=== PATIENT | male | born 1935 | race Caucasian/White ===

== ENCOUNTER 2016-07-26 13:38 | Inpatient (IN) ==
[2016-07-26] MEDS ORDERED: HYDROmorphone 2 MG/1 ML VIAL IV STA ×2 (13:53→15:06)
[2016-07-26] MEDS ORDERED: ONDANSETRON 4 MG/2 ML VIAL IV STA ×2 (13:53→15:06)
[2016-07-26] MEDS ORDERED: DIPH/TET/ACEL PERT BOOSTER VACCINE 0.5 ML VIAL IM ONE ×2 (13:54→13:58)
[2016-07-26] MEDS ORDERED: ONDANSETRON 4 MG/2 ML VIAL ONE ×2 (13:58→14:58)
[2016-07-26] MEDS ORDERED: HYDROmorphone 2 MG/1 ML VIAL ONE ×2 (13:58→14:58)
[2016-07-26 14:07] LABS: Basophils % 0.2 % (0.0-0.8); Eosinophils # 0.1 10*3/uL (0.0-0.87); Eosinophils % 0.8 % (0.00-10.9); Hemoglobin 11.9 GM/DL (14.0-18.0); Immature Granulocytes % 0.4 %; Immature Granulocytes Absolute 0.03 #; Lymphocytes # 1.5 10*3/uL (1.4-4.0); Lymphocytes % 16.9 % (21.2-54.2); Mean Corpuscular HGB Conc 32.2 GM/DL (32-36); Mean Corpuscular Hemoglobin 30 PG (27-34); Mean Corpuscular Volume 93.2 FL (87-102); Mean Platelet Volume 9.2 FL (9.6-12.0); Monocytes # 0.7 10*3/uL (0.11-0.8); Monocytes % 8.1 % (1.7-12.7); Neutrophils # 6.3 10*3/uL (1.4-7.4); Neutrophils % 73.6 % (38.7-73.9); Platelet Count 222 T/CUMM (130-400); Red Blood Count 3.97 MC/CUMM (3.8-5.5); Red Cell Distribution Width 16.7 % (9.3-17.3); White Blood Count 8.6 T/CUMM (4-12)
--- NOTE | 2016-07-26 14:13 | EKG Report ---
Stationary ECG Study [facility] ER Test Date: 07/26/2016 2:12:13 PM Pat Name: KI PERAZA Department: Room: Gender: M [employer]pper Machine: : [id number] Requested by: Noe Vidal Order Number: [id number] Reading MD: KALEN BURNS Intervals [place] Rate: 83 P: 58 MD: 140 QRS: 43 QRSD: 90 T: 29 QT: 383 QTc: 423 Interpretive Statements SINUS RHYTHM Electronically Signed On 07-28-16 17:00:38 CDT by KALEN BURNS [email or web address]
--- NOTE | 2016-07-26 14:31 | CT Report ---
CT head/brain wo con Indication: Fall, head injury Comparison: CT brain dated July 28, 2009 Technique: Multiple axial tomographic images of the brain were obtained without the use of intravenous contrast. Findings: Midline structures are nondisplaced. Mild periventricular and subcortical hypoattenuation noted which is nonspecific but consistent with chronic microvascular ischemic change. Demyelinating process and vasculitis less likely considerations. Moderate global volume loss present. Atherosclerotic calcifications demonstrated. The visualized paranasal sinuses and bilateral mastoid air cells are essentially clear. IMPRESSION: No acute intracranial abnormality demonstrated. The CT exam was performed using one or more of the following dose reduction techniques: Automated exposure control, adjustment of the mA and/or kV according to patient size, or use of iterative reconstruction technique. PROCEDURE INTERPRETED AT [facility] DEPARTMENT OF RADIOLOGY Final Report Signed by: Dr Dexter Iyer
[2016-07-26 14:36] LABS: Albumin 3.5 G/DL (3.4-5.0); Bilirubin,Total 0.5 MG/DL (0.2-1.0); Calcium 9.4 MG/DL (8.5-10.1); Osmolality,Calculated 286.1 MOS/KG (273-304); Potassium 3.3 MMOL/L (3.5-5.1); Total Protein 7.4 G/DL (6.4-8.3)
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
--- NOTE | 2016-07-26 15:05 | XRay Report ---
History is fall with chest injury and pain The heart is normal in size. There is elevation left diaphragm with minimal patchy and stranding opacities in the left lung base. No consolidative infiltrate seen. Skinfolds overlie the apices without pneumothorax seen Impression: 1. Minimal patchy and stranding opacities in the left base could be scarring or minimal atelectasis/infiltrate. PROCEDURE INTERPRETED AT [facility] DEPARTMENT OF RADIOLOGY Final Report Signed by: Dr. Nimco Plummer
--- NOTE | 2016-07-26 15:06 | XRay Report ---
History is fall with left hip injury and pain AP pelvis and 2 additional views of the left hip obtained There is mild demineralization with mild degenerative changes in both hips There is a comminuted intertrochanteric fracture of the left hip with superolateral apex of the fracture site. There is a 2 2 cm displacement of fracture fragments Vascular calcifications present Impression: 1. Intertrochanteric left hip fracture 2. Demineralization with mild degenerative changes PROCEDURE INTERPRETED AT [facility] DEPARTMENT OF RADIOLOGY Final Report Signed by: Dr. Nimco Plummer
[2016-07-26] MEDS ORDERED: PROMETHAZINE 25 MG/1 ML VIAL ONE (15:54)
[2016-07-26] MEDS ORDERED: PROMETHAZINE 25 MG/1 ML VIAL IM STA (15:58)
[2016-07-26] MEDS ORDERED: SODIUM CHLORIDE 0.9% 1,000 ML IV SCH (16:40)
[2016-07-26] MEDS ORDERED: ONDANSETRON 4 MG/2 ML VIAL IV PRN (16:40)
[2016-07-26] MEDS ORDERED: MAGNESIUM HYDROXIDE SUSP 30 ML UDCUP PO PRN (16:40)
[2016-07-26] MEDS ORDERED: HYDROmorphone 2 MG/1 ML VIAL IV SCH (18:00)
[2016-07-26] MEDS ORDERED: MORPHINE 2 MG/1 ML SYRINGE IV PRN ×2 (18:42)
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
[2016-07-26] MEDS ORDERED: POTASSIUM CHLORIDE 20 MEQ TABLET PO ONE (19:44)
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
[2016-07-26] MEDS: DEXT 5% NACL 0.45% KCL 40 MEQ 40 MEQ/1,000 ML BAG IV SCH (19:55)
[2016-07-26] MEDS: ATORVASTATIN 10 MG TABLET PO SCH (21:51)
[2016-07-26] MEDS: ALBUTEROL/IPRATROPIUM 3 ML NEB RESP TX SCH (23:28)
[2016-07-27] MEDS: DEXT 5% NACL 0.45% KCL 40 MEQ 40 MEQ/1,000 ML BAG IV SCH ×3 (03:32→20:34)
[2016-07-27 06:01] LABS: Basophils % 0.1 % (0.0-0.8); Eosinophils % 0.4 % (0.00-10.9); Hemoglobin 10.1 GM/DL (14.0-18.0); Immature Granulocytes % 0.4 %; Immature Granulocytes Absolute 0.03 #; Lymphocytes # 1.5 10*3/uL (1.4-4.0); Lymphocytes % 18.3 % (21.2-54.2); Mean Corpuscular HGB Conc 30.6 GM/DL (32-36); Mean Corpuscular Hemoglobin 29 PG (27-34); Mean Corpuscular Volume 95.7 FL (87-102); Mean Platelet Volume 8.9 FL (9.6-12.0); Monocytes # 0.9 10*3/uL (0.11-0.8); Monocytes % 11.1 % (1.7-12.7); Neutrophils # 5.8 10*3/uL (1.4-7.4); Neutrophils % 69.7 % (38.7-73.9); Platelet Count 180 T/CUMM (130-400); Red Blood Count 3.45 MC/CUMM (3.8-5.5); Red Cell Distribution Width 16.8 % (9.3-17.3); White Blood Count 8.3 T/CUMM (4-12)
[2016-07-27 06:31] LABS: Calcium 9.1 MG/DL (8.5-10.1); Potassium 4.9 MMOL/L (3.5-5.1)
--- NOTE | 2016-07-27 06:34 | Orthopedic Progress Note ---
Assessment and Plan (1) Fall from roof Status: Acute Current Visit: Yes (2) Fracture, intertrochanteric, left femur Status: Acute Current Visit: Yes Qualifiers: Encounter type: initial encounter Fracture type: closed Fracture alignment: displaced Qualified Code(s): S72.142A - Displaced intertrochanteric fracture of left femur, initial encounter for closed fracture Orthopedics - Subjective Interval history: Mr. Lobo is relatively comfortable today. He is looking forward to surgery. Exam left lower extremity is unchanged. Plan: All questions were answered. Proceeding with open reduction fixation left hip later today. Exam - Constitutional Vitals: Period Temp Pulse Resp BP Sys/Crawford Pulse Ox Last 24 Hr 96.9 F-98.3 F 51-84 16-20 103-145/59-85 94-100 Results - Labs CBC & BMP: 07/27/16 05:50 07/27/16 05:50
[2016-07-27] MEDS: ALBUTEROL/IPRATROPIUM 3 ML NEB RESP TX SCH ×4 (07:25→18:30)
[2016-07-27] MEDS: LACTATED RINGERS 1,000 ML IV SCH ×2 (12:25→13:16)
[2016-07-27] MEDS ORDERED: LIDOCAINE 1% 5 ML VIAL ONE (12:28)
[2016-07-27] MEDS ORDERED: PHENYLEPHRINE 1 MG/10 ML SYRINGE IV ONE (12:28)
[2016-07-27] MEDS ORDERED: PROPOFOL 200 MG/20 ML VIAL IV ONE (12:28)
[2016-07-27] MEDS ORDERED: ZALEPLON 5 MG CAPSULE PO PRN (12:57)
[2016-07-27] MEDS ORDERED: MAGNESIUM HYDROXIDE SUSP 30 ML UDCUP PO PRN (12:57)
[2016-07-27] MEDS ORDERED: TRANEXAMIC ACID 1,000 MG/10 ML VIAL IV ONE (13:21)
--- NOTE | 2016-07-27 13:51 | Operative Note ---
Date of procedure: 07/27/16 Procedure: DIAGNOSIS: Left hip intertrochanteric fracture PROCEDURE: Left ORIF hip (CPT# 54583) SURGEON: Daniel ANESTHESIA: Spinal PROCEDURE and FINDINGS: After adequate anesthesia was induced, the patient was placed on the fracture table. A provisional reduction was obtained. The limb was prepped and draped in the usual sterile fashion. Lateral approach to the proximal femur was made. Skin, subcutaneous tissue and iliotibial band were incised. Vastus lateralis was elevated from the intramuscular septum and lateral aspect of the femur. Guidepin was placed, overreamed, and tapped. 95 mm hip screw was placed followed by a 130 degree 3 hole plate. Screw holes were filled. Wound was irrigated. Iliotibial band was repaired with O Vicryl [id number] sutures. Subcutaneous tissues were repaired deep with 2-0 Vicryl runner and superficially with 3-0 interrupted Vicryl suture. [place] were used to approximate the skin. Sterile occlusive dressing and bacitracin were applied. Image intensification was used throughout the procedure. EBL: 50 cc Surgeon / Physician: Reji Sanchez Jr. Results - Labs CBC & BMP: 07/27/16 05:50 07/27/16 05:50 Discharge Plan - Discharge Medications No Action Atorvastatin [Lipitor] 10 mg PO BEDTIME - Follow Up or Referral - Forms/Instructions
--- NOTE | 2016-07-27 13:55 | XRay Report ---
XR hip 2V LT Indication: ORIF left hip Comparison: Left hip x-ray dated July 26, 2016 Technique: 5 intraoperative fluoroscopic views of the left hip including frontal and lateral projections. Fluoroscopy time 30 seconds. Findings: Interval placement of a dynamic nail within the femoral neck connected to a plate with screws within the proximal femoral diaphysis. This spans across intertrochanteric fracture. Fracture appears in improved anatomic alignment. Please see operative report for details. IMPRESSION: As above. PROCEDURE INTERPRETED AT [facility] DEPARTMENT OF RADIOLOGY Final Report Signed by: Dr Dexter Iyer
--- NOTE | 2016-07-27 13:59 | Anesthesia Post-Op ---
Anesthesia Post OP - Post Ansesthetic Evaluation Patient seen in post op: Yes Resp: within normal limits CV: within normal limits Mental: within normal limits Temp: within normal limits [id number]: within normal limits Nausea and Vomiting: within normal limits Pain: within normal limits
[2016-07-27] MEDS ORDERED: LACTATED RINGERS 1,000 ML IV ONE (14:01)
[2016-07-27] MEDS ORDERED: SODIUM CHLORIDE 0.9% 100 ML IV ONE (14:01)
[2016-07-27] MEDS ORDERED: MIDAZOLAM 2 MG/2 ML VIAL ONE (14:01)
[2016-07-27] MEDS ORDERED: fentaNYL 100 MCG/2 ML VIAL ONE (14:01)
--- NOTE | 2016-07-27 14:38 | Hospitalist Progress Note ---
Assessment and Plan (1) Fracture, intertrochanteric, left femur Status: Acute Assessment and plan: Ortho managing Repair today Current Visit: Yes Qualifiers: Encounter type: initial encounter Fracture type: closed Fracture alignment: displaced Qualified Code(s): S72.142A - Displaced intertrochanteric fracture of left femur, initial encounter for closed fracture (2) Hyperlipidemia Status: Acute Assessment and plan: Continue statin Current Visit: Yes (3) COPD (chronic obstructive pulmonary disease) Status: Acute Assessment and plan: duonebs prn Current Visit: Yes Hospitalist: Subjective Interval history: No acute events overnight. He is eager to get his surgery over it. Exam - Constitutional Vitals: Period Temp Pulse Resp BP Sys/Crawford Pulse Ox Last 24 Hr 96.9 F-99.2 F 51-101 16-20 98-145/55-80 91-100 General appearance: normal weight - Head Head exam: Present: normocephalic, atraumatic - Eye Eye exam: Present: EOMI Pupils: Present: DEANDRA - ENT ENT exam: Present: normal exam - Neck Neck exam: Present: normal inspection - Respiratory Respiratory exam: Present: clear to auscultation bilaterally. Absent: rhonchi, wheezes - Cardiovascular Cardiovascular exam: Present: regular rate and rhythm - GI/Abdominal GI/Abdominal exam: Present: normal bowel sounds, soft. Absent: tenderness, rebound - Extremities Exam Extremities exam: Present: normal inspection - Back Exam Back exam: Present: normal inspection - Neurological Exam Neurological exam: Present: alert, oriented X3 - Psychiatric Psychiatric exam: Present: normal affect, normal mood - Skin Skin exam: Present: warm, intact Results - Labs CBC & BMP: 07/27/16 05:50 07/27/16 05:50
[2016-07-27] MEDS: KETOROLAC 15 MG/1 ML VIAL IV SCH ×2 (15:54→21:25)
--- NOTE | 2016-07-27 16:21 | Orthopedic Progress Note ---
Assessment and Plan (1) Fall from roof Status: Acute Current Visit: Yes (2) Fracture, intertrochanteric, left femur Status: Acute Current Visit: Yes Qualifiers: Encounter type: initial encounter Fracture type: closed Fracture alignment: displaced Qualified Code(s): S72.142A - Displaced intertrochanteric fracture of left femur, initial encounter for closed fracture Orthopedics - Subjective Interval history: Mr. Lobo is comfortable postop. Left lower extremity is neurovascularly intact. Dressing is clean, dry and intact. Plan: Mobilize with physical therapy. He can be weightbearing as tolerated on his left lower extremity with walker protection. Exam - Constitutional Vitals: Period Temp Pulse Resp BP Sys/Crawford Pulse Ox Last 24 Hr 96.9 F-99.2 F 51-101 16-20 98-145/55-80 91-100 Results - Labs CBC & BMP: 07/27/16 05:50 07/27/16 05:50
[2016-07-27] MEDS: DOCUSATE SODIUM 100 MG CAPSULE PO SCH (20:32)
[2016-07-27] MEDS: ATORVASTATIN 10 MG TABLET PO SCH (20:32)
[2016-07-28] MEDS: ALBUTEROL/IPRATROPIUM 3 ML NEB RESP TX SCH ×4 (01:08→19:20)
[2016-07-28] MEDS: DEXT 5% NACL 0.45% KCL 40 MEQ 40 MEQ/1,000 ML BAG IV SCH ×2 (01:12→02:17)
[2016-07-28] MEDS: KETOROLAC 15 MG/1 ML VIAL IV SCH ×2 (03:45→09:00)
[2016-07-28 06:26] LABS: Basophils % 0.1 % (0.0-0.8); Eosinophils % 0.4 % (0.00-10.9); Hematocrit 26.3 VOL% (42.0-52.0); Hemoglobin 8.2 GM/DL (14.0-18.0); Immature Granulocytes % 0.3 %; Immature Granulocytes Absolute 0.02 #; Lymphocytes # 1.5 10*3/uL (1.4-4.0); Lymphocytes % 20.6 % (21.2-54.2); Mean Corpuscular HGB Conc 31.2 GM/DL (32-36); Mean Corpuscular Hemoglobin 30 PG (27-34); Mean Corpuscular Volume 94.6 FL (87-102); Mean Platelet Volume 9.8 FL (9.6-12.0); Monocytes # 0.9 10*3/uL (0.11-0.8); Monocytes % 12.1 % (1.7-12.7); Neutrophils # 4.7 10*3/uL (1.4-7.4); Neutrophils % 66.5 % (38.7-73.9); Platelet Count 144 T/CUMM (130-400); Red Blood Count 2.78 MC/CUMM (3.8-5.5); Red Cell Distribution Width 16.7 % (9.3-17.3); White Blood Count 7.1 T/CUMM (4-12)
[2016-07-28 06:49] LABS: Hypochromasia 1+; Lymphocytes 17 % (20-55); Platelet Estimate Normal; Segmented Neutrophils 72 % (50-85); Total Cells Counted 100
[2016-07-28] MEDS: FONDAPARINUX 2.5 MG/0.5 ML SYRINGE SUBCUT SCH (06:51)
[2016-07-28 06:55] LABS: Calcium 8.1 MG/DL (8.5-10.1); Osmolality,Calculated 282.1 MOS/KG (273-304); Potassium 4.5 MMOL/L (3.5-5.1)
--- NOTE | 2016-07-28 07:33 | Orthopedic Progress Note ---
Assessment and Plan (1) Fall from roof Status: Acute Current Visit: Yes (2) Fracture, intertrochanteric, left femur Status: Acute Current Visit: Yes Qualifiers: Encounter type: initial encounter Fracture type: closed Fracture alignment: displaced Qualified Code(s): S72.142A - Displaced intertrochanteric fracture of left femur, initial encounter for closed fracture Orthopedics - Subjective Interval history: Doing well. NV ok. Dressing dry. Continue therapy. Home with . Exam - Constitutional Vitals: Period Temp Pulse Resp BP Sys/Crawford Pulse Ox Last 24 Hr 97.4 F-101.0 F 69-101 16-20 98-149/55-77 91-100 Results - Labs CBC & BMP: 07/28/16 05:24 07/28/16 05:24
[2016-07-28] MEDS: DOCUSATE SODIUM 100 MG CAPSULE PO SCH ×2 (08:12→21:10)
--- NOTE | 2016-07-28 13:23 | Hospitalist Progress Note ---
Assessment and Plan - Time spent with patient Time spent with patient: Greater than 30 minutes (1) Fracture, intertrochanteric, left femur Status: Acute Assessment and plan: POD#1. recovering well. pain controlled. Current Visit: Yes Qualifiers: Encounter type: initial encounter Fracture type: closed Fracture alignment: displaced Qualified Code(s): S72.142A - Displaced intertrochanteric fracture of left femur, initial encounter for closed fracture (2) Fever Status: Acute Assessment and plan: Fever last pm and this morning. Surgical site looks ok. No new resp symptoms. Will get Bcx, UA, Ucx, and cxr today to exclude acute infection. Current Visit: Yes (3) Acute blood loss anemia Status: Acute Assessment and plan: Hb down to 8.2 this am from admit of 11.9. Will monitor. Consider transfusion for further decline in Hb. Current Visit: Yes (4) COPD (chronic obstructive pulmonary disease) Status: Chronic Assessment and plan: stable Current Visit: Yes Hospitalist: Subjective Interval history: POD#1. Good pain control. Ambulating with assistance and tolerating PT. Has COPD but denies current resp symptoms. Exam - Constitutional Vitals: Period Temp Pulse Resp BP Sys/Crawford Pulse Ox Last 24 Hr 97.4 F-101.0 F 69-101 16-20 98-149/55-77 93-100 General appearance: no acute distress - Head Head exam: Present: normal inspection, normocephalic, atraumatic - Eye Eye exam: Present: EOMI. Absent: conjunctival injection, scleral icterus Pupils: Present: DEANDRA - ENT ENT exam: Present: normal exam - Neck Neck exam: Present: normal inspection. Absent: lymphadenopathy - Respiratory Respiratory exam: Present: clear to auscultation bilaterally. Absent: accessory muscle use, rales, rhonchi, wheezes - Cardiovascular Cardiovascular exam: Present: regular rate and rhythm. Absent: gallop, rubs - GI/Abdominal GI/Abdominal exam: Present: normal bowel sounds. Absent: distended, tenderness - Extremities Exam Extremities exam: Present: other (LLE surgical site CDI) - Neurological Exam Neurological exam: Present: alert, oriented X3. Absent: motor sensory deficit - Psychiatric Psychiatric exam: Present: normal affect, normal mood - Skin Skin exam: Present: normal color, warm, dry Results - Labs CBC & BMP: 07/28/16 05:24 06/07/17 05:24
[2016-07-28 13:59] LABS: Apearance,Urine CLEAR (Clear); Bilirubin,Urine Negative (Negative); Blood, Urine Negative (Negative); Glucose,Urine (UA) Negative (Negative); Ketones,Urine Negative (Negative); Mucus,Urine Occasional /LPF (Occasional); Nitrite,Urine Negative (Negative); Protein,Urine Negative; RBC,Urine <1 /HPF (0-4); Urine Color Yellow (Yellow); Urine Specific Gravity 1.009 (1.001-1.035); Urine Urobilinogen < 2.0 EU/DL (0.2-1.0); WBC,Urine 1 /HPF (0-6)
--- NOTE | 2016-07-28 17:02 | XRay Report ---
Portable chest. Indication: Fever. Comparison: July 26, 2016. The heart is upper limits of normal in size. There is calcific plaque present within the aortic knob. There are areas of atelectasis in the right lung base which have worsened. There is atelectasis and patchy infiltrate in the left lung base, also worsened. No pneumothorax. Prominent degenerative changes of both shoulders. Degenerative changes of the spinal column. Impression: Interval worsening. PROCEDURE INTERPRETED AT [facility] DEPARTMENT OF RADIOLOGY Final Report Signed by: Dr. Jessica Plummer
[2016-07-28] MEDS: ATORVASTATIN 10 MG TABLET PO SCH (21:10)
[2016-07-29] MEDS: ALBUTEROL/IPRATROPIUM 3 ML NEB RESP TX SCH ×4 (01:10→20:08)
[2016-07-29 05:23] LABS: Basophils % 0.1 % (0.0-0.8); Eosinophils # 0.1 10*3/uL (0.0-0.87); Eosinophils % 0.8 % (0.00-10.9); Hematocrit 25.1 VOL% (42.0-52.0); Hemoglobin 8.1 GM/DL (14.0-18.0); Immature Granulocytes % 0.5 %; Immature Granulocytes Absolute 0.04 #; Lymphocytes # 1.5 10*3/uL (1.4-4.0); Lymphocytes % 19.7 % (21.2-54.2); Mean Corpuscular HGB Conc 32.3 GM/DL (32-36); Mean Corpuscular Hemoglobin 30 PG (27-34); Mean Platelet Volume 9.5 FL (9.6-12.0); Monocytes # 0.8 10*3/uL (0.11-0.8); Monocytes % 10.3 % (1.7-12.7); Neutrophils # 5.1 10*3/uL (1.4-7.4); Neutrophils % 68.6 % (38.7-73.9); Platelet Count 141 T/CUMM (130-400); Red Cell Distribution Width 16.9 % (9.3-17.3); White Blood Count 7.5 T/CUMM (4-12)
[2016-07-29 05:43] LABS: Hypochromasia 1+; Microcytosis 1+
[2016-07-29 05:44] LABS: Platelet Estimate Adequate
[2016-07-29] MEDS: FONDAPARINUX 2.5 MG/0.5 ML SYRINGE SUBCUT SCH (05:52)
--- NOTE | 2016-07-29 07:35 | Orthopedic Progress Note ---
Assessment and Plan (1) Fall from roof Status: Acute Current Visit: Yes (2) Fracture, intertrochanteric, left femur Status: Acute Current Visit: Yes Qualifiers: Encounter type: initial encounter Fracture type: closed Fracture alignment: displaced Qualified Code(s): S72.142A - Displaced intertrochanteric fracture of left femur, initial encounter for closed fracture Orthopedics - Subjective Interval history: Mr. Lobo is more comfortable today. He was able to walk in the [place] yesterday. He is also complaining of left knee pain. He had a postop fever yesterday. Dressing clean, dry and intact. Left lower extremities neurovascularly intact. His left knee demonstrates a mild effusion. No deformity. Full range of motion. Ligamentously stable. Extensor mechanism is intact. Mildly tender. Chest x-ray demonstrates worsening atelectasis. Hemoglobin 8.1. Impression: Postoperative fever secondary to atelectasis. Knee pain. Plan: Encourage incentive spirometry. Check knee x-rays. Mobilize with physical therapy. Watch H&H for now. Tentatively shooting for discharge home tomorrow. Exam - Constitutional Vitals: Period Temp Pulse Resp BP Sys/Crawford Pulse Ox Last 24 Hr 98.7 F-101.5 F 72-96 16-20 129-137/61-74 83-99 Results - Labs CBC & BMP: 07/29/16 04:58 07/28/16 05:24
[2016-07-29] MEDS: DOCUSATE SODIUM 100 MG CAPSULE PO SCH ×2 (08:00→21:53)
--- NOTE | 2016-07-29 10:08 | Hospitalist Progress Note ---
Assessment and Plan - Time spent with patient Time spent with patient: Greater than 30 minutes (1) Fever Status: Acute Assessment and plan: Likely atelectasis. No e/o infectious process. Current Visit: Yes (2) Fracture, intertrochanteric, left femur Status: Acute Assessment and plan: Defer to Ortho. Current Visit: Yes Qualifiers: Encounter type: initial encounter Fracture type: closed Fracture alignment: displaced Qualified Code(s): S72.142A - Displaced intertrochanteric fracture of left femur, initial encounter for closed fracture (3) Anemia Status: Acute Assessment and plan: If discharged today, recommend Ferrous Sulfate 325mg po BID with colace. Current Visit: Yes Hospitalist: Subjective Interval history: No complaints. Continues to have a low grade fever. No overnight events. Exam - Constitutional Vitals: Period Temp Pulse Resp BP Sys/Crawford Pulse Ox Last 24 Hr 98.7 F-101.5 F 72-96 16-20 129-148/61-74 83-99 General appearance: no acute distress - Head Head exam: Present: normocephalic, atraumatic - Eye Eye exam: Present: EOMI Pupils: Present: DEANDRA - ENT ENT exam: Present: normal exam - Neck Neck exam: Present: normal inspection - Respiratory Respiratory exam: Present: clear to auscultation bilaterally. Absent: rhonchi, wheezes - Cardiovascular Cardiovascular exam: Present: regular rate and rhythm. Absent: gallop, rubs, systolic murmur - GI/Abdominal GI/Abdominal exam: Present: normal bowel sounds, soft. Absent: distended, firm , guarding, tenderness, rebound - Extremities Exam Extremities exam: Present: normal inspection. Absent: calf tenderness, edema Results - Labs CBC & BMP: 07/29/16 04:58 07/28/16 05:24 Lab Results: I have reviewed the past 24 hour labs
[2016-07-29] MEDS: FERROUS SULFATE 325 MG TABLET PO SCH ×2 (10:24→21:53)
--- NOTE | 2016-07-29 10:37 | XRay Report ---
XR knee 3V LT Indication: Knee pain, status post fall Comparison: None Technique: Frontal, lateral, and sunrise views of the left knee. Findings: Question subtle nondisplaced fracture of the distal femoral metaphysis with suspected callus formation suggesting subacute nature. MRI may be beneficial for further evaluation. Moderate to severe tricompartmental degenerative change. Moderate to severe tricompartmental degenerative change. Calcific density projects over the suprapatellar joint space which may reflect sequela of prior hemorrhage. Atelectatic calcifications noted. IMPRESSION: As above. PROCEDURE INTERPRETED AT [facility] DEPARTMENT OF RADIOLOGY Final Report Signed by: Dr Dexter Iyer
[2016-07-29] MEDS: ATORVASTATIN 10 MG TABLET PO SCH (21:53)
[2016-07-30] MEDS: ALBUTEROL/IPRATROPIUM 3 ML NEB RESP TX SCH ×2 (01:24→07:14)
[2016-07-30 04:50] LABS: Basophils % 0.2 % (0.0-0.8); Eosinophils # 0.1 10*3/uL (0.0-0.87); Eosinophils % 1.4 % (0.00-10.9); Hematocrit 25.3 VOL% (42.0-52.0); Immature Granulocytes % 0.3 %; Immature Granulocytes Absolute 0.02 #; Lymphocytes # 1.4 10*3/uL (1.4-4.0); Lymphocytes % 24.5 % (21.2-54.2); Mean Corpuscular HGB Conc 31.6 GM/DL (32-36); Mean Corpuscular Hemoglobin 29 PG (27-34); Mean Corpuscular Volume 92.7 FL (87-102); Mean Platelet Volume 9.4 FL (9.6-12.0); Monocytes # 0.7 10*3/uL (0.11-0.8); Monocytes % 12.5 % (1.7-12.7); Neutrophils # 3.6 10*3/uL (1.4-7.4); Neutrophils % 61.1 % (38.7-73.9); Platelet Count 156 T/CUMM (130-400); Red Blood Count 2.73 MC/CUMM (3.8-5.5); Red Cell Distribution Width 17.2 % (9.3-17.3); White Blood Count 5.8 T/CUMM (4-12)
[2016-07-30 05:24] LABS: Calcium 8.8 MG/DL (8.5-10.1); Osmolality,Calculated 281.3 MOS/KG (273-304); Potassium 3.8 MMOL/L (3.5-5.1)
[2016-07-30 05:37] LABS: Eosinophils 1 % (0-10); Lymphocytes 26 % (20-55); Segmented Neutrophils 56 % (50-85); Total Cells Counted 100
[2016-07-30 05:38] LABS: Hypochromasia 1+; Microcytosis 1+; Ovalocytes Slight; Platelet Estimate Normal
[2016-07-30] MEDS: FONDAPARINUX 2.5 MG/0.5 ML SYRINGE SUBCUT SCH (06:15)
--- NOTE | 2016-07-30 06:41 | Discharge Summary ---
Hospital Course - Hospital Course Hospital Course: Mr. Lobo was admitted after sustaining a left intertrochanteric hip fracture. Patient received perioperative DVT and antimicrobial prophylaxis. He received physical therapy. Patient developed left knee pain. Radiographs were obtained and demonstrate severe tricompartmental degenerative changes. The hospitalist service was consulted to help manage his medical problems perioperatively. Left lower extremities neurovascular intact. Dressing clean, dry and intact. Diagnosis - Discharge Diagnosis (1) Fall from roof Status: Acute (2) Fracture, intertrochanteric, left femur Status: Acute Discharge Plan - Discharge Data Disposition: Home Health Service Condition at Discharge: Stable Discharge Diet: advance to your usual diet Activity: ambulate only with your walker Hygiene: may shower Weight Bearing at Discharge: weight bear as tolerated Driving: not until seen by doctor - Discharge Medications Continue Atorvastatin [Lipitor] 10 mg PO BEDTIME - Follow Up or Referral - Forms/Instructions Additional Discharge Instructions: Daily dry dressing changes. Arrange for walker and bedside commode for home use. Wear RAFAEL hose for 1 month. Follow-up appointment in 4 weeks. Discontinue libia and Steri-Strip wound on August 08, 2016. Prescription for [place] 7.5 was written. Take aspirin 325 mg by mouth daily for 21 days. Exam - Constitutional Vitals: Period Temp Pulse Resp BP Sys/Crawford Pulse Ox Last 24 Hr 99.3 F-100.2 F 74-94 16-18 126-148/66-78 91-99 Discharge Results Procedures and tests throughout hospitalization: Pending Orders 07/28/16 13:40 Urine Culture Routine 07/28/16 14:00 Blood Culture Routine Labs on day of discharge: Labs from last 24 hours 07/30/16 07/30/16 04:39 04:39 WBC 5.8 RBC 2.73 L Hgb 8.0 L Hct 25.3 L MCV 92.7 MCH 29 MCHC 31.6 L RDW 17.2 Plt Count 156 MPV 9.4 L Neut % (Auto) 61.1 Lymph % (Auto) 24.5 [place] % (Auto) 12.5 Eos % (Auto) 1.4 Baso % (Auto) 0.2 Neut # (Auto) 3.6 Lymph # (Auto) 1.4 [place] # (Auto) 0.7 Eos # (Auto) 0.1 Baso # (Auto) 0.0 Total Counted 100 Immature Gran % 0.3 Nucleated RBC % 0.0 Immature Gran # 0.02 Segmented Neutrophils 56 Lymphocytes 26 Monocytes 16 H Eosinophils 1 Basophils 1.0 H Nucleated RBCs # 0.00 Platelet Estimate Normal Hypochromasia 1+ Microcytosis 1+ Ovalocytes Slight Sodium 141 Potassium 3.8 Chloride 107 Carbon Dioxide 24 Anion Gap 13.8 BUN 14 Creatinine 0.80 GFR Calculation 97 BUN/Creatinine Ratio 17.00 Glucose 96 Calculated Osmolality 281.3 Calcium 8.8 Preliminary micro results at discharge 07/28/16 14:00 Blood Culture - Preliminary Blood No growth at 1 day 07/28/16 14:00 Blood Culture - Preliminary Blood No growth at 1 day 07/28/16 13:40 Urine Culture - Preliminary Urine,Voided No Growth at 12 hours. DS: Provider Date of admission: 07/26/16 14:56 Primary care physician: . No PCP Attending physician on admission: Reji Sanchez Jr., Consults: 07/26/16 16:40 Consult to Anesthesiology [CONS] Routine Consulting Provider: Reason for Anesthesiology: Pre-op Clearance Consult to Physician [CONS] Routine Comment: Consulting Provider: Malinda Alfonso Person Notified: DR. MENDIETA Date Notified: 07/26/16 Time Notified: 19:18 07/27/16 12:57 Consult to Case Mgmt/Social Srvs [CONS] Routine Reason for Case Mgmt/Social Srvs: Rehab Home Health Equipment Consult Comment: Bedside Commode, CPM, Walker Consult to Occupational Therapy [CONS] Routine Reason for Occupational Therapy: Evaluate and Treat Consult Comment: ADL's Consult to Physical Therapy [CONS] Routine Reason for Physical Therapy: Evaluate and Treat Gait Training Consult Comment: WBAT with walker 07/29/16 16:47 Consult to Physical Therapy [CONS] Routine Reason for Physical Therapy: Other Consult Comment: Deliver a Standard Walker to Pt before D/C on Tuesday for home use Discharging clinician: Reji Sanchez Jr., Expected date of discharge: 07/30/16
[2016-07-30 07:14] VITALS: BP 142/83
[2016-07-30] MEDS: FERROUS SULFATE 325 MG TABLET PO SCH (09:35)
[2016-07-30] MEDS: DOCUSATE SODIUM 100 MG CAPSULE PO SCH (09:35)
--- NOTE | 2016-08-03 07:55 | Physician Query Form ---
CLICK EDIT DOCUMENT TO SELECT QUERY ANSWER --> OK --> SIGN Genny Campbell RN Clinical Palliative Nurse W) [phone] (f) [phone] [email or web address] PROVIDERS: Make your selection(s) from the choices in EACH section by typing an "x" and enter comments in the comment section. Please use your independent medical judgment in providing your response. This request does not imply that any particular answer is desired or expected. CLINICAL INDICATORS: (Providers should not edit this section) Based on documentation of "Postoperative fever secondary to atelectasis". Please clarify the diagnosis of atelectasis. Please clarify the following: (x ) The above is an inherent, integral or routinely potential/expected occurrence of surgery (not a complication) ( ) The above was an inadvertent, unintended, iatrogenic, or unexpected occurrence of surgery (complication) ( ) The above is a complication but not due to the surgery, specify cause: ( ) Other, please specify: ( ) Clinically unable to determine COMMENTS: PLEASE ALSO DOCUMENT RESPONSE IN PROGRESS NOTES AND/OR DISCHARGE SUMMARY Use of terms such as suspected, likely, or probable (associated with a specific diagnosis that is being evaluated, monitored, or treated as if it exists) are acceptable and can be restated in the discharge summary if not ruled out. MTDD
== END 2016-07-30 11:15 | disposition home health service (06) | DRG 481 ==
LOC: EDBD → EDUNIT# → N.ED 13:38 → N.3E 14:56
PROVIDERS: ADMIT Orthopaedic Surgery; ATTEND Orthopaedic Surgery